=== PATIENT | male | born 1950 | race Caucasian/White ===

== ENCOUNTER → 2016-07-31 | Outpatient (CLI) | payer OTHER, MEDICARE ==
--- NOTE | 2016-08-03 18:02 | PCVCIMAG ---
APPROVED REPORT Exam: Stress Echocardiogram Indication: CAD s/p CABG,S/P MT,ISCHEMIC CARDIOMYOPATHY,HTN Patient Location: Echo lab Stress Nurse: Brittnee Verma RN Status: routine HR: 93 bpm Rhythm: NSR,OLD INFERIOR INFARCT Medical History Medical History: CAD s/p CABG, CAD s/p MT, HTN, Hyperlipidemia, Cardiomyopathy Previous Cardiac Procedures: PCI,CABG Exercise History: Physically active Procedure The patient underwent an Exercise Stress Test using the Yash Protocol. Blood pressure, heart rate, and EKG were monitored. An Echocardiogram was performed by master hearth technician in four stages in quad fashion. At peak stress, four selected images were obtained and placed side by side with resting images for comparison. Stress Test Details Stress Test: Exercise stress testing was performed using a Yash protocol. HR Resting HR: 93 bpmMax Heart Rate (APMHR): 155 bpm Max HR Achieved: 166 bpmTarget HR (85% APMHR): 131 bpm % of APMHR: 107 Recovery HR: 107 bpm HR response to stress: Normal HR response to stress BP Resting BP: 114/78 mmHg Max BP: 168/70 mmHg ECG Resting ECG: Sinus Rhythm, Inferior MT pattern Stress ECG: Sinus Rhythm, Inferior MT pattern Arrhythmia: VPC's Clinical Reason for Termination: Maximal effort Stress Symptoms: NONE Exercise duration: 10 min 05 sec Highest Stage Achieved: Stage 4: 4.2 mph at 16% grade. Exercise capacity: 13.4 METs Overall Exercise Capacity for Age: Good Angina Score: None Pre-Stress Echo The resting Echocardiogram showed normal left ventricular contractility with an estimated Ejection Fraction of about 50-55%. The resting Echocardiogram demonstrated wall motion abnormality in the basal inferior, septal albert. This is consistent with known old damage. Septal abnormal motion consistent with CABG is seen. Post-Stress Echo The stress Echocardiogram showed normal left ventricular contractility with an estimated Ejection Fraction of about 55-60%. The stress Echocardiogram demonstrated wall motion abnormality in the basal inferior wall. Conclusion Clinical Response: Non-ischemic Exercise Capacity: Superior Stress ECG Response: Indeterminant Stress Echo Images: Non-ischemic ST depression seen does not correspond with any new wall motion abnormalities. Other Information Study Quality: Good <Conclusion> ST depression seen does not correspond with any new wall motion abnormalities.
== END ==
LOC: PCVCIMAG 10:24
PROVIDERS: ATTEND Internal Medicine Cardiovascular Disease
DX: I25.10 Atherosclerotic heart disease of native coronary artery without angina pectoris (principal); I21.3 ST elevation (STEMI) myocardial infarction of unspecified site; I42.8 Other cardiomyopathies; I10 Essential (primary) hypertension; Z95.1 Presence of aortocoronary bypass graft
CPT/HCPCS: 93325; 93351

== ENCOUNTER → 2017-04-20 | Outpatient (CLI) | payer OTHER, MEDICARE | END | disposition home or self-care (01) | LOC: PCVCCLINIC 10:22 | DX: I25.10 Atherosclerotic heart disease of native coronary artery without angina pectoris (principal); I10 Essential (primary) hypertension; I25.5 Ischemic cardiomyopathy; E78.00 Pure hypercholesterolemia, unspecified; R00.1 Bradycardia, unspecified; Z95.1 Presence of aortocoronary bypass graft; Z87.891 Personal history of nicotine dependence; Z79.82 Long term (current) use of aspirin; Z79.899 Other long term (current) drug therapy | CPT/HCPCS: 80061; 93005; G0463 ==

== ENCOUNTER → 2018-04-12 | Outpatient (CLI) | payer OTHER | END | disposition home or self-care (01) | LOC: PCVCCLINIC 14:52 | PROVIDERS: ATTEND Internal Medicine Cardiovascular Disease | DX: I25.10 Atherosclerotic heart disease of native coronary artery without angina pectoris (principal); I10 Essential (primary) hypertension; E78.00 Pure hypercholesterolemia, unspecified; I25.5 Ischemic cardiomyopathy; Z95.1 Presence of aortocoronary bypass graft; Z79.82 Long term (current) use of aspirin; Z87.891 Personal history of nicotine dependence | CPT/HCPCS: 36415; 80061; 93005; G0463 ==

== ENCOUNTER → 2018-10-12 | Outpatient (CLI) | payer OTHER | LOC: PCVCCLINIC 10:30 | PROVIDERS: ATTEND Internal Medicine Cardiovascular Disease | DX: I25.10 Atherosclerotic heart disease of native coronary artery without angina pectoris (principal); I25.5 Ischemic cardiomyopathy; I10 Essential (primary) hypertension; E78.00 Pure hypercholesterolemia, unspecified; F17.210 Nicotine dependence, cigarettes, uncomplicated | CPT/HCPCS: 36415; 80061; 93005; G0463 ==

== ENCOUNTER → 2018-12-16 | Outpatient (CLI) | payer OTHER ==
--- NOTE | 2018-12-16 11:56 | PCVCIMAG ---
APPROVED REPORT Doppler Spectral Velocity Analysis PSV / EDVPSV / EDV ECA (R) 79 / 14 cm/sECA (L) 79 / 15 cm/s dICA (R) 57 / 19 cm/sdICA (L) 48 / 16 cm/s Yeyo (R) 64 / 26 cm/smICA (L) 67 / 27 cm/s pICA (R) 85 / 29 cm/spICA (L) 67 / 23 cm/s Bulb (R) 84 / 24 cm/sBulb (L) 72 / 17 cm/s dCCA (R) 75 / 26 cm/sdCCA (L) 80 / 24 cm/s mCCA (R) 87 / 24 cm/smCCA (L) 106 / 28 cm/s Vert (R) 77 / 7 cm/sVert (L) 51 / 18 cm/s ICA/CCA 1.13 ICA/CCA 0.84 Findings The right carotid bulb has mild plaque. The right proximal internal carotid artery shows no significant stenosis. The right common carotid artery shows no significant stenosis. The right external carotid artery shows no significant stenosis. The left carotid bulb has mild calcified plaque. The left proximal internal carotid artery shows <40% stenosis. The left common carotid artery shows no significant stenosis. The left external carotid artery shows no significant stenosis. Conclusion 1. Right internal carotid artery plaquing without significant stenosis. 2. Left internal carotid artery stenosis (<40%). 3. Antegrade vertebral flow.
--- NOTE | 2018-12-16 14:41 | PCVCIMAG ---
APPROVED REPORT Study performed: 12/16/2018 10:55:22 Exam: Stress Echocardiogram Indication: CAD, S/P CABGx4 (1999), Hypertension Patient Location: Echo lab Stress Nurse: Brittnee Verma RN Room #: 1 Status: routine Ht: 5 ft 9 in HR: 80 bpm BP: 124/78 mmHg Rhythm: NSR Medical History Medical History: Hyperlipidemia Procedure The patient underwent an Exercise Stress Test using the Yash Protocol. Blood pressure, heart rate, and EKG were monitored. An Echocardiogram was performed by missile and missile checkout technician in four stages in quad fashion. At peak stress, four selected images were obtained and placed side by side with resting images for comparison. Stress Test Details Stress Test: Exercise stress testing was performed using a Yash protocol. HR Resting HR: 80 bpmMax Heart Rate (APMHR): 153 bpm Max HR Achieved: 160 bpmTarget HR (85% APMHR): 130 bpm % of APMHR: 104 Recovery HR: 109 bpm HR response to stress: Normal HR response to stress BP Resting BP: 124/78 mmHg Max BP: 170/76 mmHg Recovery BP: 130/60 mmHg BP response to stress: Normal blood pressure response to stress. ECG Resting ECG: Sinus Rhythm Stress ECG: Sinus Rhythm Arrhythmia: Rare PVC's Recovery ECG: Sinus Rhythm Clinical Reason for Termination: Maximal effort Exercise duration: 10 min 00 sec Highest Stage Achieved: Stage 4: 4.2 mph at 16% grade. Exercise capacity: 13.40 METs Overall Exercise Capacity for Age: Good Stress ECG Conclusion ECG: Non-ischemic Clinical: Non-ischemic Pre-Stress Echo The resting Echocardiogram showed normal left ventricular contractility with an estimated Ejection Fraction of about 50-55%. Normal wall motion in all segments on baseline images. Post-Stress Echo The stress Echocardiogram showed normal left ventricular contractility with an estimated Ejection Fraction of about 60-65%. Normal augmentation of wall motion in all segments on post stress images. Clinical No clinical or ECG evidence for ischemia. Conclusion Clinical Response: Non-ischemic Exercise Capacity: Superior Stress ECG Response: Non-ischemic Stress Echo Images: Non-ischemic No clinical, EKG or echocardiographic evidence for ischemia. Normal stress echocardiogram with maximal exercise stress. Doppler and color flow demonstrate trace-mild mitral regurgitation, mild tricuspid regurgitation. Pulmonary artery pressure is 35 mmHg. Other Information Study Quality: Adequate <Conclusion> No clinical, EKG or echocardiographic evidence for ischemia. Normal stress echocardiogram with maximal exercise stress. Doppler and color flow demonstrate trace-mild mitral regurgitation, mild tricuspid regurgitation. Pulmonary artery pressure is 35 mmHg.
== END | disposition home or self-care (01) ==
LOC: PCVCIMAG 10:13
PROVIDERS: ATTEND Internal Medicine Cardiovascular Disease
DX: I65.23 Occlusion and stenosis of bilateral carotid arteries (principal); I08.1 Rheumatic disorders of both mitral and tricuspid valves; I25.10 Atherosclerotic heart disease of native coronary artery without angina pectoris; I25.5 Ischemic cardiomyopathy; I10 Essential (primary) hypertension; I73.9 Peripheral vascular disease, unspecified; E78.00 Pure hypercholesterolemia, unspecified; I25.2 Old myocardial infarction; F17.290 Nicotine dependence, other tobacco product, uncomplicated; Z95.1 Presence of aortocoronary bypass graft; Z82.49 Family history of ischemic heart disease and other diseases of the circulatory system; Z80.9 Family history of malignant neoplasm, unspecified; Z83.3 Family history of diabetes mellitus; Z72.89 Other problems related to lifestyle; Z88.0 Allergy status to penicillin
CPT/HCPCS: 93325; 93351; 93880